=== PATIENT | female | born 2000 | race Caucasian/White ===

== ENCOUNTER 2023-08-04 06:44 | Emergency (ER) | payer OTHER ==
[~2023-08-04] VITALS: Ht 177.8 cm; Wt 72.6 kg
[2023-08-04 06:49] VITALS: BP 131/82; PULSE 70; RESP 16; TEMP 98.5; O2SAT 100
[2023-08-04] MEDS ORDERED: NITR100C7 PO (07:10)
[2023-08-04] MEDS ORDERED: NAPR-1704 PO (07:10)
[2023-08-04 07:22] VITALS: BP 131/82; PULSE 70; RESP 16; TEMP 98.5; O2SAT 100
== END 2023-08-04 07:23 | disposition home or self-care (01) ==
LOC: MED 06:44
DX: N39.0 Urinary tract infection, site not specified (principal); R03.0 Elevated blood-pressure reading, without diagnosis of hypertension; F17.210 Nicotine dependence, cigarettes, uncomplicated; Z71.6 Tobacco abuse counseling; Z79.1 Long term (current) use of non-steroidal anti-inflammatories (NSAID); Z79.899 Other long term (current) drug therapy
CPT/HCPCS: 81002; 81025; 99283